=== PATIENT | female | born 1980 | race Caucasian/White ===

== ENCOUNTER 2016-12-28 09:38 | Emergency (ER) | payer MEDICAID ==
[2016-12-28 10:19] LABS: BILIRUBIN,URINE NEGATIVE (NEGATIVE); PH,URINE 6.5 PH (5.0-7.5)
[2016-12-28 10:39] LABS: UA w/ MICROSCOPIC CHARGE YES
[2016-12-28 10:40] LABS: HCG UR QUAL NEGATIVE
[2016-12-28 11:05] LABS: UR CULTURE IF IND NOT INDICATED; WBC,URINE >25 /HPF (0-5)
[2016-12-28] MEDS ORDERED: NITROFURANTOIN MACRO 100 MG CAPSULE PO STA (11:08)
[2016-12-28] MEDS ORDERED: ONDANSETRON ODT 4 MG TABLET TL STA (11:09)
[2016-12-28] MEDS ORDERED: HYDROcod/ACETAM 5/325 MG TABLET PO STA (11:09)
--- NOTE | 2016-12-28 11:12 | ED Physician Documentation ---
PD HPI FEMALE - Stated complaint Stated Complaint: FEMALE /MIGRAINES - Chief complaint Chief Complaint: Abd Pain - History obtained from History obtained from: Patient - History of Present Illness Timing - onset: How many days ago (3) Timing - duration: Days (3) Timing - details: Gradual onset, Still present Associated symptoms: Dysuria, Urinary frequency. No: Fever, Hematuria Contributing factors: IUD Similar symptoms before: Has not had sx before - Additional information Additional information: The patient is a 36-year-old female who presents with dysuria of 3 days duration. She reports associated nausea. She denies vomiting, fever, or back pain. she denies history of similar symptoms in the past. On further review of systems, she reports headache, consistent with migraine, of which she has a history. She does not recall her last menstrual period, stating she has an IUD. Review of Systems Constitutional: denies: Fever Nose: denies: Congestion Throat: denies: Sore throat Respiratory: denies: Dyspnea GI: reports: Nausea. 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 : None, Other HEENT: None Psych: None Derm: None - Past Surgical History Past Surgical History: Yes General: Appendectomy Ortho: Other /OPERATIONS BUSINESS PARTNER: section, Other - Present Medications Home Medications: Ambulatory Orders Medication Instructions Recorded Confirmed HYDROcod/ACETAM 5/325 [Vicodin 1 - 2 ea PO Q6H PRN #10 tablet 12/28/16 5/325] Nitrofurantoin [Macrobid] 100 mg PO BID #10 capsule 12/28/16 Phenazopyridine HCl [Pyridium] 200 mg PO TID PRN #10 tablet 12/28/16 Promethazine [Phenergan] 25 - 50 mg PO Q6H PRN #10 tab 12/28/16 - Allergies Allergies/Adverse Reactions: Allergies Allergy/AdvReac Type Severity Reaction Status Date / Time No Known Drug Allergies Allergy Verified 12/28/16 09:53 - Social History Does the pt smoke?: No Smoking Status: Former smoker Does the pt drink ETOH?: No Does the pt have substance abuse?: No - Immunizations Immunizations are current?: Yes - POLST Patient has POLST: No PD ED PE NORMAL - Vitals Vital signs reviewed: Yes (normal) - General General: Alert and oriented X 3, Well developed/nourished - HEENT HEENT: Atraumatic, EOMI, Pharynx benign - Neck Neck: Supple, no meningeal sign - Cardiac Cardiac: RRR, No murmur - Respiratory Respiratory: No respiratory distress, Clear bilaterally - Abdomen Abdomen: Soft, Non distended, Other (Mild suprapubic tenderness to palpation, without rebound or guarding.) - Back Back: No CVA TTP - Derm Derm: No rash - Extremities Extremities: No edema, No calf tenderness / cord - Neuro Neuro: Alert and oriented X 3, No motor deficit, Normal speech Results - Vitals Vitals: Oxygen O2 Source Room air - Labs Labs: Microbiology 12/28/16 09:55 Urine Culture - Preliminary Urine,Clean Catch 50-100,000 COLONIES/ML Polymicrobial growth including potential pathogens. This is suggestive of skin or other contamination. Laboratory Tests 12/28/16 12/28/16 09:55 09:55 Urine Color YELLOW Urine Clarity CLOUDY Urine pH 6.5 Ur Specific [place] 1.015 1.015 Urine Protein NEGATIVE Urine Glucose (UA) NEGATIVE Urine Ketones NEGATIVE Urine Occult Blood SMALL H Urine Nitrite NEGATIVE Urine Bilirubin NEGATIVE Urine Urobilinogen 0.2 (NORMAL) Ur Leukocyte Esterase SMALL H Urine RBC 6-10 H Urine WBC >25 H Ur Squamous Epith Cells MOD Squamous H Urine Bacteria Few Ur Microscopic Review INDICATED Urine Culture Comments NOT INDICATED Urine HCG, Qual NEGATIVE PD MEDICAL DECISION MAKING - ED course Complexity details: reviewed results, re-evaluated patient, considered differential, d/w patient, d/w family ED course: The patient's presentation is consistent with acute cystitis. Her presentation does not suggest pyelonephritis or sepsis. She has an associated headache, consistent with her normal migraine. Treatment in the emergency department included administration of nitrofurantoin 100 mg orally, ondansetron 4 mg orally, and Vicodin 1 tablet orally. She is being discharged with prescriptions for Macrobid, Pyridium, Phenergan, and Vicodin, 10 tablets. I discussed with her and her family the expected course of illness, antibiotic treatment and outpatient follow-up, as well as potentially worrisome signs or symptoms that should prompt reevaluation in the emergency department. Departure - Departure Disposition: 01 Home, Self Care Clinical Impression: Urinary tract infection Qualifiers: Urinary tract infection type: acute cystitis Hematuria presence: without hematuria Qualified Code(s): N30.00 - Acute cystitis without hematuria Condition: Stable Instructions: ED UTI Cystitis Female Prescriptions: Nitrofurantoin [Macrobid] 100 mg PO BID #10 capsule HYDROcod/ACETAM 5/325 [Vicodin 5/325] 1 - 2 ea PO Q6H PRN #10 tablet PRN Reason: Pain Promethazine [Phenergan] 25 - 50 mg PO Q6H PRN #10 tab PRN Reason: Nausea / Vomiting Phenazopyridine HCl [Pyridium] 200 mg PO TID PRN #10 tablet PRN Reason: pain with urination Comments: Drink plenty of fluids, including cranberry juice. Take Macrobid twice daily as prescribed. You can use Pyridium as prescribed if needed for painful urination. You can use Phenergan as prescribed if needed for nausea. Follow-up with primary physician within 2 weeks. Call to schedule an appointment. Return to the emergency department if you develop increasing pain, persistent vomiting, fever with shaking chills, or otherwise worsening symptoms. Discharge Date/Time: 12/28/16 11:29
[2016-12-28] MEDS ORDERED: NITROFURANTOIN MACRO 100 MG CAPSULE PO ONE (11:19)
[2016-12-28] MEDS ORDERED: HYDROcod/ACETAM 5/325 MG TABLET ONE (11:19)
[2016-12-28] MEDS ORDERED: ONDANSETRON ODT 4 MG TABLET ONE (11:20)
[2016-12-28 11:27] VITALS: BP 124/86
== END 2016-12-28 11:29 | disposition home or self-care (01) ==
LOC: ED 09:38
DX: N30.00 Acute cystitis without hematuria (principal); Z97.5 Presence of (intrauterine) contraceptive device; Z87.891 Personal history of nicotine dependence
CPT/HCPCS: 81001; 81025; 87086; 99283; A9270; Q0162; 81003

== ENCOUNTER 2017-07-22 14:23 | Outpatient (CLI) | payer MEDICAID ==
--- NOTE | 2017-07-22 17:04 | XRAY Report ---
LEFT FOOT: 07/22/2017 HISTORY: Pain. FINDINGS: Three views of the left foot show no evidence of acute fracture or bone destruction. There is slight lateral deviation of the second toe DIP joint, likely chronic. Minor degenerative changes of the interphalangeal joints of the toes. Metatarsophalangeal articulations appear well maintained. No soft tissue swelling or radiopaque foreign body. IMPRESSION: NO DEFINITE ACUTE OR SIGNIFICANT FINDINGS LEFT FOOT. TD: 07/22/2017 17:04 MODESTA
== END 2017-07-22 14:24 | disposition home or self-care (01) ==
LOC: DI.N 14:23
PROVIDERS: ATTEND Nurse Practitioner
DX: S93.492A Sprain of other ligament of left ankle, initial encounter (principal)

== ENCOUNTER 2017-08-24 18:07 | Emergency (ER) | payer MEDICAID ==
[2017-08-24 18:32] LABS: LEUKOCYTE ESTERASE, URINE MODERATE (NEGATIVE); OCCULT BLOOD,URINE SMALL (NEGATIVE); PH,URINE 5.5 PH (5.0-7.5)
--- NOTE | 2017-08-24 18:35 | ED Physician Documentation ---
PD HPI FEMALE - Stated complaint Stated Complaint: FEMALE - Chief complaint Chief Complaint: UTI - History obtained from History obtained from: Patient - History of Present Illness Timing - onset: Other (Has had about a week's worth of dysuria and frequency which got better and then got worse again and now today has some left flank pain but no nausea or fevers. 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, Other - Present Medications Home Medications: Ambulatory Orders Medication Instructions Recorded Confirmed HYDROcod/ACETAM 5/325 [[place] 5/325] 1 - 2 ea PO Q6H PRN #10 tablet 08/24/17 Sulfamethoxazole/Trimethoprim 1 each PO BID 7 Days tablet 08/24/17 [Sulfamethoxazole-Tmp Ds Tablet] - Allergies Allergies/Adverse Reactions: Allergies Allergy/AdvReac Type Severity Reaction Status Date / Time No Known Drug Allergies Allergy Verified 08/24/17 18:21 - Social History Does the pt smoke?: No Smoking Status: Never smoker Does the pt drink ETOH?: No Does the pt have substance abuse?: No - Immunizations Immunizations are current?: Yes - POLST Patient has POLST: No PD ED PE NORMAL - Vitals Vital signs reviewed: Yes - General General: Alert and oriented X 3, No acute distress - Abdomen Abdomen: Normal bowel sounds, Soft, Non tender - Back Back: Other (Mild left flank tenderness) - Neuro Neuro: Alert and oriented X 3, Normal speech Results - Vitals Vitals: Vital Signs - 24 hr 08/24/17 18:16 Temperature 36.9 C Heart Rate 92 Respiratory 16 Rate Blood Pressure 131/85 H O2 Saturation 99 Oxygen O2 Source Room air - Labs Labs: Laboratory Tests 08/24/17 08/24/17 18:28 18:29 Urine Color ORANGE Urine Clarity HAZY Urine pH 5.5 Ur Specific [place] 1.025 1.025 Urine Protein 100 H Urine Glucose (UA) NEGATIVE Urine Ketones NEGATIVE Urine Occult Blood SMALL H Urine Nitrite POSITIVE H Urine Bilirubin NEGATIVE Urine Urobilinogen 0.2 (NORMAL) Ur Leukocyte Esterase MODERATE H Urine RBC 6-10 H Urine WBC >25 H Urine WBC Clumps PRESENT Ur Squamous Epith Cells MOD Squamous H Urine Bacteria Moderate H Ur Microscopic Review INDICATED Urine Culture Comments NOT INDICATED Urine HCG, Qual NEGATIVE Departure - Departure Disposition: 01 Home, Self Care Clinical Impression: Pyelonephritis Condition: Good Record reviewed to determine appropriate education?: Yes Instructions: Pyelonephritis Dc Prescriptions: HYDROcod/ACETAM 5/325 [[place] 5/325] 1 - 2 ea PO Q6H PRN #10 tablet PRN Reason: Pain Sulfamethoxazole/Trimethoprim [Sulfamethoxazole-Tmp Ds Tablet] 1 each PO BID 7 Days tablet Comments: We will culture your urine, the results should be done in 48-72 hours. If an antibiotic change is necessary we will call you. Return if worse in the meantime, especially if you develop increasing flank pain, fevers, or cannot keep down the medication.
[2017-08-24 18:45] LABS: CLARITY,URINE HAZY (CLEAR)
[2017-08-24 18:45] LABS: HCG UR QUAL NEGATIVE
[2017-08-24 18:46] LABS: BACTERIA,URINE Moderate /HPF (None Seen); SQUAMOUS EPITHELIAL CELL,UR MOD Squamous (<= Few); WBC CLUMPS,URINE PRESENT
[2017-08-24] MEDS ORDERED: SULFAMETH/TRIMETH DS 800/160 MG TABLET PO STA (18:47)
[2017-08-24 19:01] LABS: BILIRUBIN,URINE COLOR INTERFERENCE (NEGATIVE)
[2017-08-24 19:03] VITALS: BP 125/83
== END 2017-08-24 19:00 | disposition home or self-care (01) ==
LOC: ED 18:07
DX: N12 Tubulo-interstitial nephritis, not specified as acute or chronic (principal)
CPT/HCPCS: 81001; 81025; 87077; 87086; 87181; 99283; A9270; 81003

== ENCOUNTER 2019-05-07 11:58 | Emergency (ER) | payer MEDICAID, OTHER ==
[2019-05-07 12:38] LABS: BASOPHILS # (AUTO) 0.1 10^3/uL (0.0-0.1); BASOPHILS % (AUTO) 0.5 %; EOSINOPHILS # (AUTO) 0.1 10^3/uL (0.0-0.7); EOSINOPHILS % (AUTO) 1.2 %; HGB - HEMOGLOBIN 15.3 g/dL (12.0-16.0); LYMPHOCYTES # (AUTO) 2.5 10^3/uL (1.5-3.5); LYMPHOCYTES % (AUTO) 22.7 %; MEAN CORPUSCULAR HEMOGLOBIN 28.9 pg (27.0-31.0); MEAN CORPUSCULAR HGB CONC 33.2 g/dL (32.0-36.0); MEAN CORPUSCULAR VOLUME 87.1 fL (81.0-99.0); MEAN PLATELET VOLUME 8.8 fL (7.9-10.8); MONOCYTES # (AUTO) 0.7 10^3/uL (0.0-1.0); NEUTROPHILS # (AUTO) 7.6 10^3/uL (1.5-6.6); NEUTROPHILS % (AUTO) 69.2 %; PLT - PLATELET COUNT 347 10^3/uL (130-450); RED BLOOD COUNT 5.29 10^6/uL (4.20-5.40); RED CELL DISTRIBUTION WIDTH 13.3 % (12.0-15.0)
[2019-05-07 12:56] LABS: ALBUMIN 4.5 g/dL (3.2-5.5); BILIRUBIN,TOTAL 0.7 mg/dL (0.2-1.0); CALCIUM 9.7 mg/dL (8.5-10.3); CREATININE 1.1 mg/dL (0.4-1.0); TOTAL PROTEIN 8.9 g/dL (6.7-8.2)
[2019-05-07] MEDS ORDERED: SODIUM CHLORIDE 0.9% 1,000 ML IV ONE (13:46)
[2019-05-07] MEDS ORDERED: PANTOPRAZOLE 40 MG VIAL IVP STA (13:46)
[2019-05-07] MEDS ORDERED: METOCLOPRAMIDE 10 MG/2 ML VIAL IVP STA (13:46)
--- NOTE | 2019-05-07 13:48 | ED Physician Documentation ---
PD HPI NVD - Stated complaint Stated Complaint: VOMITED BLOOD - Chief complaint Chief Complaint: Abd Pain - History obtained from History obtained from: Patient - History of Present Illness Timing - onset: Other (Starting 2 days ago she is had nausea, not really able to eat anything, has not been vomiting a lot, once on Saturday once yesterday. Last night she had a nosebleed and today she had a large volume of emesis in the shower which was stomach acid mixed with blood. She has abdominal pain but not cramping. She denies diarrhea or changes in her bowel movements. No recent travel or sick contacts. is unlikely, her has had a vasectomy. She has a history of appendectomy and . No fevers. Starting today she had a gradual onset frontal headache associated light se nsitivity similar to prior migraines.) Review of Systems Constitutional: reports: Fatigue. denies: Fever, Chills Nose: reports: Epistaxis. 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: section, Other - Present Medications Home Medications: Ambulatory Orders Medication Instructions Recorded Confirmed HYDROcod/ACETAM 5/325 [[place] 5/325] 1 - 2 ea PO Q6H PRN #10 tablet 08/24/17 Sulfamethoxazole/Trimethoprim 1 each PO BID 7 Days tablet 08/24/17 [Sulfamethoxazole-Tmp Ds Tablet] Ondansetron Odt [Zofran] 4 mg TL Q6H PRN #10 tablet 05/07/19 - Allergies Allergies/Adverse Reactions: Allergies Allergy/AdvReac Type Severity Reaction Status Date / Time No Known Drug Allergies Allergy Verified 05/07/19 12:02 - Social History Does the pt smoke?: No Smoking Status: Never smoker Does the pt drink ETOH?: No Does the pt have substance abuse?: No - Immunizations Immunizations are current?: Yes - POLST Patient has POLST: No PD ED PE NORMAL - Vitals Vital signs reviewed: Yes - General General: Alert and oriented X 3, No acute distress - HEENT HEENT: PERRL, EOMI, Ears normal, Pharynx benign - Neck Neck: Supple, no meningeal sign, No bony TTP - Cardiac Cardiac: RRR, No murmur - Respiratory Respiratory: No respiratory distress, Clear bilaterally - Abdomen Abdomen: Normal bowel sounds, Soft, Non tender - Back Back: No CVA TTP, No spinal TTP - Derm Derm: Normal color, Warm and dry - Extremities Extremities: No edema, No calf tenderness / cord - Neuro Neuro: Alert and oriented X 3, Normal speech Results - Vitals Vitals: Vital Signs - 24 hr 05/07/19 05/07/19 12:03 15:23 Temperature 36.8 C Heart Rate 76 62 Respiratory 14 16 Rate Blood Pressure 145/92 H 114/74 O2 Saturation 100 98 Oxygen O2 Source Room air - Labs Labs: Laboratory Tests 05/07/19 05/07/19 05/07/19 12:31 12:31 15:00 WBC 11.0 H RBC 5.29 Hgb 15.3 Hct 46.1 MCV 87.1 MCH 28.9 MCHC 33.2 RDW 13.3 Plt Count 347 MPV 8.8 Neut # (Auto) 7.6 H Lymph # (Auto) 2.5 [place] # (Auto) 0.7 Eos # (Auto) 0.1 Baso # (Auto) 0.1 Absolute Nucleated RBC 0.00 Nucleated RBC % 0.0 Sodium 139 Potassium 3.7 Chloride 105 Carbon Dioxide 23 Anion Gap 11.0 BUN 22 H Creatinine 1.1 H Estimated GFR (MDRD) 56 L Glucose 92 Calcium 9.7 Total Bilirubin 0.7 AST 22 ALT 31 Alkaline Phosphatase 67 Total Protein 8.9 H Albumin 4.5 Globulin 4.4 H Albumin/Globulin Ratio 1.0 Lipase 42 Urine Color YELLOW Urine Clarity CLOUDY Urine pH 6.0 Ur Specific [place] >=1.030 H Urine Protein NEGATIVE Urine Glucose (UA) NEGATIVE Urine Ketones TRACE Urine Occult Blood SMALL H Urine Nitrite POSITIVE H Urine Bilirubin NEGATIVE Urine Urobilinogen 0.2 (NORMAL) Ur Leukocyte Esterase NEGATIVE Urine RBC 0-5 Urine WBC 0-3 Ur Squamous Epith Cells MANY Squamous H Urine Bacteria Many H Ur Microscopic Review INDICATED Urine Culture Comments NOT INDICATED Urine HCG, Qual 01/16/20 15:00 WBC RBC Hgb Hct MCV MCH MCHC RDW Plt Count MPV Neut # (Auto) Lymph # (Auto) [place] # (Auto) Eos # (Auto) Baso # (Auto) Absolute Nucleated RBC Nucleated RBC % Sodium Potassium Chloride Carbon Dioxide Anion Gap BUN Creatinine Estimated GFR (MDRD) Glucose Calcium Total Bilirubin AST ALT Alkaline Phosphatase Total Protein Albumin Globulin Albumin/Globulin Ratio Lipase Urine Color Urine Clarity Urine pH Ur Specific [place] >=1.030 H Urine Protein Urine Glucose (UA) Urine Ketones Urine Occult Blood Urine Nitrite Urine Bilirubin Urine Urobilinogen Ur Leukocyte Esterase Urine RBC Urine WBC Ur Squamous Epith Cells Urine Bacteria Ur Microscopic Review Urine Culture Comments Urine HCG, Qual NEGATIVE PD MEDICAL DECISION MAKING - ED course ED course: 38-year-old woman with 2 days of nausea and then vomiting today with some blood in the emesis, also associated with headache, migrainous by pattern and history, no sudden onset or fevers. No neck stiffness. Her nausea was easily controlled but she still had the headache, Toradol was not helpful either but she said it was a was not any different from her usual migraines and just plan to take Excedrin. On repeat examination prior to discharge her belly was completely nontender, she was ambulatory in the department without distress. She was given close return precautions. Departure - Departure Disposition: 01 Home, Self Care Clinical Impression: Abdominal pain Qualifiers: Abdominal location: generalized Qualified Code(s): R10.84 - Generalized abdominal pain Vomiting Qualifiers: Vomiting type: unspecified Vomiting Intractability: non-intractable Nausea presence: with nausea Qualified Code(s): R11.2 - Nausea with vomiting, unspecified Headache Qualifiers: Headache type: unspecified Headache chronicity pattern: acute headache Intractability: not intractable Qualified Code(s): R51 - Headache Condition: Good Record reviewed to determine appropriate education?: Yes Instructions: Abdominal Pain Prescriptions: Ondansetron Odt [Zofran] 4 mg TL Q6H PRN #10 tablet PRN Reason: Nausea / Vomiting Comments: Return in 24 hours if not better, anytime for new or worsening symptoms.
[2019-05-07] MEDS ORDERED: KETOROLAC 30 MG/ML VIAL IVP STA (15:06)
[2019-05-07 15:11] LABS: BILIRUBIN,URINE NEGATIVE (NEGATIVE); GLUCOSE, URINE (UA) NEGATIVE (NEGATIVE); KETONES,URINE (UA) TRACE mg/dL (NEGATIVE); LEUKOCYTE ESTERASE, URINE NEGATIVE (NEGATIVE); NITRITE,URINE POSITIVE (NEGATIVE); OCCULT BLOOD,URINE SMALL (NEGATIVE); PROTEIN,URINE NEGATIVE (NEGATIVE); UROBILINOGEN,URINE 0.2 (NORMAL) E.U./dL (NORMAL)
[2019-05-07 15:17] LABS: CLARITY,URINE CLOUDY (CLEAR)
[2019-05-07 15:24] VITALS: BP 114/74
[2019-05-07 15:31] LABS: BACTERIA,URINE Many /HPF (None Seen); RBC,URINE 0-5 /HPF (0-5); SQUAMOUS EPITHELIAL CELL,UR MANY Squamous (<= Few)
[2019-05-07 15:52] LABS: HCG UR QUAL NEGATIVE
== END 2019-05-07 16:12 | disposition home or self-care (01) ==
LOC: ED 11:58
DX: G43.909 Migraine, unspecified, not intractable, without status migrainosus (principal); R10.84 Generalized abdominal pain; R11.2 Nausea with vomiting, unspecified
CPT/HCPCS: 36415; 80053; 81001; 81025; 83690; 85025; 96361; 96374; 96375; 99283; 99284; J2765; 81003; 87086

== ENCOUNTER 2020-05-13 09:41 | Emergency (ER) | payer OTHER ==
[2020-05-13 10:05] LABS: BILIRUBIN,URINE NEGATIVE (NEGATIVE); CLARITY,URINE CLEAR (CLEAR); GLUCOSE, URINE (UA) NEGATIVE (NEGATIVE); KETONES,URINE (UA) NEGATIVE (NEGATIVE); LEUKOCYTE ESTERASE, URINE NEGATIVE (NEGATIVE); NITRITE,URINE NEGATIVE (NEGATIVE); OCCULT BLOOD,URINE TRACE-INTA (NEGATIVE); PROTEIN,URINE NEGATIVE (NEGATIVE); UROBILINOGEN,URINE 0.2 (NORMAL) E.U./dL (NORMAL)
[2020-05-13 10:07] LABS: HCG UR QUAL NEGATIVE
--- NOTE | 2020-05-13 10:25 | ED Physician Documentation ---
PD HPI ABD PAIN - Stated complaint Stated Complaint: NAUSEA/RT SIDE PX - Chief complaint Chief Complaint: Abd Pain - History obtained from History obtained from: Patient - History of Present Illness Timing - onset: How many hours ago (5), Today Timing - duration: Hours (5) Timing - details: Abrupt onset (awoke about 4 am with significant right flank pa in radiating to right abdomen.), Still present Quality: Cramping, Aching, Pain Location: RLQ Radiation: Right flank Improved by: No: Laying still, Position, Meds (tried ibuprofen) Worsened by: Moving. No: Breathing, Palpation Associated symptoms: Nausea. No: Fever, Vomiting, Diarrhea, Constipation, Dysuria, Loss of appetite Similar symptoms before: Diagnosis (remote history kidney stone in the past.) Recently seen: Not recently seen Review of Systems Constitutional: denies: Fever, Chills Nose: denies: Rhinorrhea / runny nose, Congestion Throat: denies: Sore throat Respiratory: denies: Cough GI: reports: Nausea. 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, Other HEENT: None Psych: None Derm: None - Past Surgical History Past Surgical History: Yes General: Appendectomy Ortho: Other /WIDTH STRIPPER: section, Other - Present Medications Home Medications: Ambulatory Orders Medication Instructions Recorded Confirmed Ibuprofen [Motrin] 600 mg PO TID PRN #20 tab 05/13/20 Ondansetron Odt [Zofran] 4 mg TL Q6H PRN #10 tablet 05/13/20 Oxycodone HCl/Acetaminophen 1 each PO Q4H PRN #15 tablet 05/13/20 [Percocet 7.5-325 mg Tablet] - Allergies Allergies/Adverse Reactions: Allergies Allergy/AdvReac Type Severity Reaction Status Date / Time No Known Drug Allergies Allergy Verified 05/13/20 09:43 - Living Situation Living Arrangement: reports: At home - Social History Does the pt smoke?: No Smoking Status: Never smoker Does the pt drink ETOH?: No Does the pt have substance abuse?: No - Immunizations Immunizations are current?: Yes - POLST Patient has POLST: No PD ED PE NORMAL - Vitals Vital signs reviewed: Yes - General General: Alert and oriented X 3, Well developed/nourished, Other (appears in pain) - Neck Neck: Supple, no meningeal sign, No adenopathy - Cardiac Cardiac: RRR, No murmur - Respiratory Respiratory: Clear bilaterally - Abdomen Abdomen: Normal bowel sounds, Soft, Non distended, Other (tender RLQ. Some to right mid abd but not in [place] itself. ALso tender right CVA area to palpation and percussion. ) - Female Female : Deferred - Rectal Rectal: Deferred - Derm Derm: Normal color, Warm and dry, No rash - Extremities Extremities: No edema, No calf tenderness / cord - Neuro Neuro: Alert and oriented X 3, No motor deficit, Normal speech Results - Vitals Vitals: Vital Signs - 24 hr 05/13/20 05/13/20 05/13/20 09:43 11:59 12:38 Temperature 36.7 C 36.8 C Heart Rate 70 65 69 Respiratory 18 12 18 Rate Blood Pressure 141/84 H 121/84 H 127/92 H O2 Saturation 100 98 96 05/13/20 13:30 Temperature 36.5 C Heart Rate 60 Respiratory 18 Rate Blood Pressure 140/80 H O2 Saturation 100 Oxygen O2 Source Room air - Labs Labs: Laboratory Tests 05/13/20 05/13/20 05/13/20 09:50 10:27 10:27 WBC 7.5 RBC 5.20 Hgb 15.0 Hct 45.1 MCV 86.7 MCH 28.8 MCHC 33.3 RDW 13.1 Plt Count 367 MPV 8.8 Neut # (Auto) 4.6 Lymph # (Auto) 2.1 [place] # (Auto) 0.5 Eos # (Auto) 0.3 Baso # (Auto) 0.1 Absolute Nucleated RBC 0.00 Nucleated RBC % 0.0 Sodium 136 Potassium 4.1 Chloride 107 Carbon Dioxide 23 Anion Gap 6.0 BUN 13 Creatinine 1.0 Estimated GFR (MDRD) 62 L Glucose 98 Calcium 9.3 Total Bilirubin 0.6 AST 26 ALT 43 Alkaline Phosphatase 57 Total Protein 7.8 Albumin 4.0 Globulin 3.8 Albumin/Globulin Ratio 1.1 Lipase 49 Urine Color YELLOW Urine Clarity CLEAR Urine pH 7.0 Ur Specific [place] 1.020 Urine Protein NEGATIVE Urine Glucose (UA) NEGATIVE Urine Ketones NEGATIVE Urine Occult Blood TRACE-INTA Urine Nitrite NEGATIVE Urine Bilirubin NEGATIVE Urine Urobilinogen 0.2 (NORMAL) Ur Leukocyte Esterase NEGATIVE Ur Microscopic Review NOT INDICATED Urine Culture Comments NOT INDICATED Urine HCG, Qual NEGATIVE - Rads (name of study) abd CT Radiology: Prelim report reviewed, See rad report (no kidney stones nor hydronephrosis. Gallbladder unremarkable. No evidence acute abdominal process. ) PD MEDICAL DECISION MAKING - ED course Complexity details: re-evaluated patient (pain imroved with IV meds. No obvious cause for the pain on labs/CT. consider musculoskeletal. Biliary colic without stones nor distension? less likely. Not clear the cause. ), considered differential (seems likely kidney stone. Possible gallbladder though not as tender RUQ. Could be muscular but seems intense pain for that. ), d/w patient Departure - Departure Disposition: 01 Home, Self Care Clinical Impression: Right sided abdominal pain Condition: Stable Record reviewed to determine appropriate education?: Yes Instructions: ED Abdominal Pain Unkn Cause Follow-Up: Beau Boykin MD [Primary Care Provider] - Prescriptions: Ibuprofen [Motrin] 600 mg PO TID PRN #20 tab PRN Reason: Pain Oxycodone HCl/Acetaminophen [Percocet 7.5-325 mg Tablet] 1 each PO Q4H PRN #15 tablet PRN Reason: Pain Ondansetron Odt [Zofran] 4 mg TL Q6H PRN #10 tablet PRN Reason: Nausea / Vomiting Comments: Your blood test, urine test, CT scan are normal without any obvious cause for the pain. Considerations could be musculoskeletal pain, intestinal cramping, gallbladder spasm without stones or infection, or other potential causes that would not show on the scan. At this point we would typically treat with some anti-inflammatories, nausea medicine, pain medicine and see how the symptoms do over the course of a day to 2. Recheck if not improved over the next couple of days. Return if symptoms are not contained well with the above medications. Off work today and rest. Stay well-hydrated. Light diet and bland food. Forms: Activity restrictions Discharge Date/Time: 05/13/20 13:30
[2020-05-13 10:31] LABS: BASOPHILS # (AUTO) 0.1 10^3/uL (0.0-0.1); BASOPHILS % (AUTO) 0.7 %; EOSINOPHILS # (AUTO) 0.3 10^3/uL (0.0-0.7); EOSINOPHILS % (AUTO) 3.5 %; LYMPHOCYTES # (AUTO) 2.1 10^3/uL (1.5-3.5); LYMPHOCYTES % (AUTO) 28.4 %; MEAN CORPUSCULAR HEMOGLOBIN 28.8 pg (27.0-31.0); MEAN CORPUSCULAR HGB CONC 33.3 g/dL (32.0-36.0); MEAN CORPUSCULAR VOLUME 86.7 fL (81.0-99.0); MEAN PLATELET VOLUME 8.8 fL (7.9-10.8); MONOCYTES # (AUTO) 0.5 10^3/uL (0.0-1.0); MONOCYTES % (AUTO) 6.1 %; NEUTROPHILS # (AUTO) 4.6 10^3/uL (1.5-6.6); PLT - PLATELET COUNT 367 10^3/uL (130-450); RED CELL DISTRIBUTION WIDTH 13.1 % (12.0-15.0); WHITE BLOOD COUNT 7.5 x10^3/uL (4.8-10.8)
[2020-05-13 10:49] LABS: ALBUMIN/GLOBULIN RATIO 1.1 (1.0-2.2); BILIRUBIN,TOTAL 0.6 mg/dL (0.2-1.0); CALCIUM 9.3 mg/dL (8.5-10.3); TOTAL PROTEIN 7.8 g/dL (6.7-8.2)
[2020-05-13] MEDS ORDERED: HYDROmorphone 1 MG/ML CARPUJECT IVP STA ×2 (10:57→12:15)
[2020-05-13] MEDS ORDERED: KETOROLAC 30 MG/ML VIAL IVP STA (10:57)
[2020-05-13] MEDS ORDERED: SODIUM CHLORIDE 0.9% 1,000 ML IV STA (10:57)
[2020-05-13] MEDS ORDERED: ONDANSETRON 4 MG/2 ML VIAL IVP STA (10:57)
[2020-05-13] MEDS ORDERED: IOVERSOL 320 100 ML VIAL IVP ONE ×2 (11:46→13:29)
--- NOTE | 2020-05-13 12:11 | CT Report ---
PROCEDURE: Abdomen/Pelvis W INDICATIONS: right flank to abd pain CONTRAST: IV CONTRAST: Optiray 320 ml: 100 PO CONTRAST: *NO PO CONTRAST TECHNIQUE: After the administration of intravenous contrast, 5 mm thick sections acquired from the diaphragms to the symphysis. 5 mm thick coronal and sagittal reformats were acquired. For radiation dose reducti on, the following was used: automated exposure control, adjustment of mA and/or kV according to michael ent size. COMPARISON: None. FINDINGS: Image quality: Excellent. ABDOMEN: Lung bases: Lung bases are clear. Heart size is normal. Small hiatal hernia Solid organs: Liver and spleen are normal in size and enhancement. Gallbladder is unremarkable Shiv iary system is non dilated. Pancreas enhances normally. No adrenal nodules. Kidneys demonstrate no rmal size and enhancement, without hydronephrosis. Peritoneum and bowel: Bowel loops demonstrate normal wall thickness and caliber. No free fluid or a ir. Nodes and vessels: No retroperitoneal or mesenteric adenopathy by size criteria. Aorta and inferior vena cava are normal in size. Miscellaneous: No ventral hernias. PELVIS: Genitourinary: Bladder wall thickness is normal. Miscellaneous: No inguinal hernias or adenopathy. Bones: No suspicious bony lesions. No vertebral body compression fractures. IMPRESSION: 1. Small hiatal hernia. 2. No evidence acute abdominal process. Reviewed by: Hilario Jordan MD on 05/13/2020 12:09 PM PST Approved by: Hilario Jordan MD on 05/13/2020 12:09 PM PST Station ID: [id number]
[2020-05-13 14:08] VITALS: BP 140/80
== END 2020-05-13 13:30 | disposition home or self-care (01) ==
LOC: ED 09:41
DX: R10.31 Right lower quadrant pain (principal); R11.0 Nausea; K44.9 Diaphragmatic hernia without obstruction or gangrene; Z87.442 Personal history of urinary calculi
CPT/HCPCS: 36415; 74177; 80053; 81003; 81025; 83690; 85025; 96361; 96374; 96375; 96376; 99283; 99284; J1170; Q9967; 81001; 87086

== ENCOUNTER 2021-05-20 14:35 | Outpatient (CLI) | payer OTHER | END 2021-05-20 14:36 | disposition EMS.NT | LOC: EMS 14:35 | DX: U07.1 COVID-19 (principal) ==

== ENCOUNTER 2022-01-30 08:00 | Outpatient (CLI) | payer OTHER ==
--- NOTE | 2022-01-30 16:10 | XRAY Report ---
PROCEDURE: Foot 3 View RT INDICATIONS: SPRAIN OF R FOOT TECHNIQUE: 3 views of the foot were acquired. COMPARISON: X-ray ankle 01/30/2022 FINDINGS: Bones: No fractures or dislocations. No suspicious bony lesions. Soft tissues: Lateral malleolar edema. Achilles tendon appears normal. IMPRESSION: Lateral malleoli are edema. No visualized acute fracture or dislocation. However, occult injury canno t be excluded. Recommend short interval imaging follow-up in 7-10 days as clinically indicated for ad ditional evaluation. Reviewed by: Tiffany Rae MD on 01/30/2022 4:08 PM PDT Approved by: Tiffany Rae MD on 01/30/2022 4:08 PM PDT Station ID: [id number]
--- NOTE | 2022-01-30 16:11 | XRAY Report ---
PROCEDURE: Ankle 3 View RT INDICATIONS: SPRAIN OF R ANKLE TECHNIQUE: 3 views of the ankle were acquired. COMPARISON: X-ray foot 01/30/2022 FINDINGS: Bones: No fractures or dislocations. Ankle mortise is normally aligned. No suspicious bony lesions . Soft tissues: Lateral malleolar edema. Achilles tendon appears normal. IMPRESSION: No visualized acute fracture or dislocation. However, occult injury cannot be excluded. Recommend short interval imaging follow-up in 7-10 days as clinically indicated for additional evalua tion. Reviewed by: Tiffany Rae MD on 01/30/2022 4:10 PM PDT Approved by: Tiffany Rae MD on 01/30/2022 4:10 PM PDT Station ID: [id number]
== END 2022-01-30 23:59 | disposition home or self-care (01) ==
LOC: DI.N 08:00
PROVIDERS: ATTEND Emergency Medicine
DX: S93.491A Sprain of other ligament of right ankle, initial encounter (principal); S93.691A Other sprain of right foot, initial encounter

== ENCOUNTER 2022-08-06 16:42 | Emergency (ER) | payer OTHER ==
[2022-08-06 17:11] LABS: BASOPHILS % (AUTO) 0.5 %; EOSINOPHILS # (AUTO) 0.3 10^3/uL (0.0-0.7); EOSINOPHILS % (AUTO) 2.9 %; HCT - HEMATOCRIT 42.9 % (37.0-47.0); LYMPHOCYTES # (AUTO) 2.9 10^3/uL (1.5-3.5); LYMPHOCYTES % (AUTO) 33.9 %; MEAN CORPUSCULAR HGB CONC 32.6 g/dL (32.0-36.0); MEAN CORPUSCULAR VOLUME 85.8 fL (81.0-99.0); MEAN PLATELET VOLUME 9.7 fL (7.9-10.8); MONOCYTES # (AUTO) 0.6 10^3/uL (0.0-1.0); MONOCYTES % (AUTO) 6.8 %; NEUTROPHILS # (AUTO) 4.8 10^3/uL (1.5-6.6); NEUTROPHILS % (AUTO) 55.8 %; PLT - PLATELET COUNT 323 10^3/uL (130-450); RED CELL DISTRIBUTION WIDTH 13.2 % (12.0-15.0); WHITE BLOOD COUNT 8.6 x10^3/uL (4.8-10.8)
[2022-08-06] MEDS ORDERED: ONDANSETRON 4 MG/2 ML VIAL IVP STA (17:12)
[2022-08-06] MEDS ORDERED: SODIUM CHLORIDE 0.9% 1,000 ML IV STA (17:12)
[2022-08-06] MEDS ORDERED: HYDROmorphone 1 MG/ML CARPUJECT IVP STA (17:12)
--- NOTE | 2022-08-06 17:13 | ED Physician Documentation ---
PD HPI ABD PAIN - Stated complaint Stated Complaint: ABD PX/NAUS - Chief complaint Chief Complaint: Abd Pain - History obtained from History obtained from: Patient - Additional information Additional information: 42-year-old woman with history of gastric sleeve done in [place] approximately 6 months ago, and remote appendectomy. She developed nausea 3 days ago and starting 2 days ago she has had constant left mid and upper abdominal pain and vomiting. Bowel movements have not been changed at all. She has not had any complications previously from her gastric sleeve. No history of peptic ulcer disease or other health issues. PD PAST MEDICAL HISTORY - Past Medical History Cardiovascular: None Respiratory: None Endocrine/Autoimmune: None GI: None CARGO VESSEL STEWARDESS: None : None, Other HEENT: None Psych: None Derm: None - Past Surgical History Past Surgical History: Yes General: Appendectomy Ortho: Other /CARGO VESSEL STEWARDESS: section, Other - Present Medications Home Medications: Ambulatory Orders Medication Instructions Recorded Confirmed Ibuprofen [Motrin] 600 mg PO TID PRN #20 tab 05/13/20 Ondansetron Odt [Zofran] 4 mg TL Q6H PRN #10 tablet 05/13/20 Oxycodone HCl/Acetaminophen 1 each PO Q4H PRN #15 tablet 05/13/20 [Percocet 7.5-325 mg Tablet] Cefdinir 300 mg PO BID #20 cap 08/06/22 HYDROcod/ACETAM 5/325 [[place] 5/325] 1 - 2 tab PO Q6H PRN #15 tablet 08/06/22 Omeprazole 40 mg PO DAILY #30 cap 08/06/22 Ondansetron Odt [Zofran] 4 mg TL Q6H PRN #10 tablet 08/06/22 - Allergies Allergies/Adverse Reactions: Allergies Allergy/AdvReac Type Severity Reaction Status Date / Time No Known Drug Allergies Allergy Verified 08/06/22 16:57 - Social History Does the pt smoke?: No Smoking Status: Never smoker Does the pt drink ETOH?: No Does the pt have substance abuse?: No - Immunizations Immunizations are current?: Yes - POLST Patient has POLST: No PD ED PE NORMAL - Vitals Vital signs reviewed: Yes - General General: Alert and oriented X 3, No acute distress - Cardiac Cardiac: RRR, No murmur - Respiratory Respiratory: No respiratory distress - Abdomen Abdomen: Normal bowel sounds, Soft, Other (Tender in the left upper quadrant without surgical signs) - Neuro Neuro: Alert and oriented X 3, Normal speech Results - Vitals Vitals: Vital Signs - 24 hr 08/06/22 08/06/22 08/06/22 16:53 17:44 19:14 Temperature 36.4 C L Heart Rate 63 51 L 50 L Respiratory 16 16 18 Rate Blood Pressure 121/61 87/76 L 108/75 O2 Saturation 100 94 97 Oxygen O2 Source Room air - Labs Labs: Laboratory Tests 08/06/22 08/06/22 08/06/22 17:01 17:01 17:45 WBC 8.6 RBC 5.00 Hgb 14.0 Hct 42.9 MCV 85.8 MCH 28.0 MCHC 32.6 RDW 13.2 Plt Count 323 MPV 9.7 Neut # (Auto) 4.8 Lymph # (Auto) 2.9 Bonner # (Auto) 0.6 Eos # (Auto) 0.3 Baso # (Auto) 0.0 Absolute Nucleated RBC 0.00 Nucleated RBC % 0.0 Sodium 139 Potassium 3.7 Chloride 104 Carbon Dioxide 28 Anion Gap 7.0 BUN 29 H Creatinine 0.8 Estimated GFR (MDRD) 79 L Glucose 93 Calcium 9.7 Total Bilirubin 0.4 AST 16 ALT 22 Alkaline Phosphatase 67 Total Protein 8.1 Albumin 4.4 Globulin 3.7 Albumin/Globulin Ratio 1.2 Lipase 63 H Urine Color YELLOW Urine Clarity CLEAR Urine pH 6.0 Ur Specific [place] 1.025 Urine Protein NEGATIVE Urine Glucose (UA) NEGATIVE Urine Ketones NEGATIVE Urine Occult Blood NEGATIVE Urine Nitrite POSITIVE H Urine Bilirubin NEGATIVE Urine Urobilinogen 1 (NORMAL) Ur Leukocyte Esterase TRACE H Urine RBC None Seen Urine WBC 4-5 Ur Squamous Epith Cells FEW Squamous Urine Bacteria Many H Ur Microscopic Review INDICATED Urine Culture Comments INDICATED Urine HCG, Qual NEGATIVE PD Medical Decision Making - ED course ED course: 42-year-old woman who is about 5 to 6 months after a gastric sleeve presents with left upper quadrant pain. There is no shingles rash. She is tender. CBC and CMP are basically normal. Urinalysis consistent with infection and given the left-sided abdominal pain this could be consistent with left-sided pyelonephritis. CT showing hiatal hernia. Unclear which of these 2 diagnoses is causing the prominence of her pain but we will put her on omeprazole and antibiotics pending follow-up. She was feeling much better after the administration of 1 mg of IV Dilaudid and 4 mg of IV Zofran. Departure - Departure Disposition: 01 Home, Self Care Clinical Impression: Pyelonephritis, Hiatal hernia Condition: Good Record reviewed to determine appropriate education?: Yes Instructions: Pyelonephritis Dc Prescriptions: Cefdinir 300 mg PO BID #20 cap HYDROcod/ACETAM 5/325 [[place] 5/325] 1 - 2 tab PO Q6H PRN #15 tablet PRN Reason: Pain Omeprazole 40 mg PO DAILY #30 cap Ondansetron Odt [Zofran] 4 mg TL Q6H PRN #10 tablet PRN Reason: Nausea / Vomiting Comments: As discussed, your lab work today looks okay, the urinalysis shows signs of infection, and the CT is demonstrating increased hiatal hernia with postoperative changes. I sent prescriptions electronically to [facility] in [place]. Follow-up with your doctor for further evaluation and treatment. Return if worse or if not better over the next couple of days. We will culture your urine, the results should be done in 48-72 hours. If an antibiotic change is necessary we will call you. Return if worse in the meantime, especially if you develop increasing flank pain, fevers, or cannot ke ep down the medication. I am prescribing a short course of narcotic pain medication for you. These are potentially dangerous and addictive medications that should be used carefully. These medications may constipate you. Take an [id number]-[id number] stool softener (docusate) twice daily with plenty of water while taking these medications. If you go 24 hours without a bowel movement, take [id number] miralax, per package instructions. Do not drink or drive while taking these medications. If you received narcotic or sedating medications while in the emergency department, do not drive for 24 hours. Store this medication in a safe, secure place and out of reach of children. It is a violation of federal law to give or sell this medication to another person or to use in a manner other than prescribed. The ED will not refill narcotic prescriptions, including prescriptions lost or stolen. To dispose of unwanted medications: 1. [facility] [address] [facility] in [place] has a medication drop box. They accept prescription medications (in pill form) Saturday through Saturday 9:00 a.m. to 5:00 p.m. 2. The [facility] accepts prescription medications (in pill form only) for disposal year round. Call for more information. 3. Contact the [facility] for the next [facility] sponsored prescription drug collection event. , [phone], or [phone]; Note that many narcotic pain relievers also contain Tylenol/acetaminophen. Please ensure that your total dose of acetaminophen from all sources does not exceed 3 g (3000 mg) per day. Discharge Date/Time: 08/06/22 19:26
[2022-08-06 17:22] LABS: ALBUMIN 4.4 g/dL (3.2-5.5); ALBUMIN/GLOBULIN RATIO 1.2 (1.0-2.2); BILIRUBIN,TOTAL 0.4 mg/dL (0.2-1.0); CALCIUM 9.7 mg/dL (8.5-10.3); CREATININE 0.8 mg/dL (0.4-1.0); POTASSIUM 3.7 mmol/L (3.5-5.0); TOTAL PROTEIN 8.1 g/dL (6.7-8.2)
[2022-08-06] MEDS ORDERED: iohexoL-300 100 ML VIAL ONE (17:44)
[2022-08-06 17:49] LABS: BILIRUBIN,URINE NEGATIVE (NEGATIVE); GLUCOSE, URINE (UA) NEGATIVE (NEGATIVE); KETONES,URINE (UA) NEGATIVE (NEGATIVE); LEUKOCYTE ESTERASE, URINE TRACE (NEGATIVE); NITRITE,URINE POSITIVE (NEGATIVE); OCCULT BLOOD,URINE NEGATIVE (NEGATIVE); PROTEIN,URINE NEGATIVE (NEGATIVE); UROBILINOGEN,URINE 1 (NORMAL) E.U./dL (NORMAL)
[2022-08-06 17:52] LABS: CLARITY,URINE CLEAR (CLEAR); HCG UR QUAL NEGATIVE
[2022-08-06 18:00] LABS: BACTERIA,URINE Many /HPF (None Seen); RBC,URINE None Seen /HPF (0-5); SQUAMOUS EPITHELIAL CELL,UR FEW Squamous (<= Few)
[2022-08-06] MEDS ORDERED: iohexoL-300 100 ML VIAL IVP ONE (18:17)
--- NOTE | 2022-08-06 19:01 | CT Report ---
PROCEDURE: ABDOMEN/PELVIS W INDICATIONS: iv only, abd pain CONTRAST: 100mL Omni 300 TECHNIQUE: After the administration of intravenous contrast, 5 mm thick sections acquired from the diaphragms to the symphysis. 5 mm thick coronal and sagittal reformats were acquired. For radiation dose reducti on, the following was used: automated exposure control, adjustment of mA and/or kV according to michael ent size. COMPARISON: 05/13/2020 FINDINGS: Image quality: Excellent. Lung bases and heart: Mild bibasilar gravitational changes. Small to moderate-sized hiatal hernia. Chavez rgical changes at the GE junction extending above the diaphragm. Normal size heart. Liver: Unremarkable. Gallbladder and biliary tree: Unremarkable. No biliary dilation. Spleen: Unremarkable. Pancreas: Unremarkable. Adrenals: Unremarkable. Kidneys and ureters: Unremarkable. Bowel and peritoneum: No bowel distension. No pathologic free fluid. The appendix is not seen. Surgic al changes of partial gastrectomy. Lymph nodes: No central or retroperitoneal adenopathy. Vessels: Unremarkable. PELVIS Reproductive organs: Normal CT appearance. Bladder: Unremarkable. Lymph nodes: Unremarkable. Bones: No aggressive osseous abnormality. Other: None. IMPRESSION: 1. No CT evidence of acute process. 2. Hiatal hernia, increased in size compared to the prior study and new changes of partial gastrectom y. Reviewed by: Rossy Maurice MD on 08/06/2022 7:00 PM PDT Approved by: Rossy Maurice MD on 08/06/2022 7:00 PM PDT Station ID: [id number]
[2022-08-06] MEDS ORDERED: CEFPODOXIME PROXETIL 100 MG TABLET PO STA (19:12)
[2022-08-06 19:14] VITALS: BP 108/75
== END 2022-08-06 19:26 | disposition home or self-care (01) ==
LOC: ED 16:42
DX: N12 Tubulo-interstitial nephritis, not specified as acute or chronic (principal); K44.9 Diaphragmatic hernia without obstruction or gangrene
CPT/HCPCS: 36415; 74177; 80053; 81001; 81025; 83690; 85025; 87086; 87181; 96374; 96375; 99284; A9270; J1170; Q9967; 81003